=== PATIENT | male | born 1980 | race Caucasian/White ===

== ENCOUNTER 2022-07-23 11:43 | Day surgery (SDC) | payer BC ==
[~2022-07-23 11:43] MED LIST: Midazolam 1 MG/ML 2 ML SDV ONE; Propofol 200 MG/20 ML SDV ONE
[2022-07-23] MEDS ORDERED: Lactated Ringers 1,000 ML IV SCH (12:00)
[2022-07-23] MEDS ORDERED: Sodium Chloride 0.9% 10 ML Syringe FLUSH PRN (12:00)
[2022-07-23] MEDS ORDERED: Midazolam 1 MG/ML 2 ML SDV ONE (12:31)
== END 2022-07-23 13:40 | disposition home or self-care (01) ==
LOC: LL.SDS 11:43
PROVIDERS: ATTEND Surgery
DX: R13.10 Dysphagia, unspecified (principal); E66.9 Obesity, unspecified; K21.9 Gastro-esophageal reflux disease without esophagitis; Z88.0 Allergy status to penicillin; Z88.1 Allergy status to other antibiotic agents; Z79.899 Other long term (current) drug therapy; Z68.33 Body mass index [BMI] 33.0-33.9, adult; Z87.891 Personal history of nicotine dependence
CPT/HCPCS: 00812; J2250; J2704; J7120